=== PATIENT | male | born 1980 ===

== ENCOUNTER 2024-03-18 11:45 | Emergency (ER) | payer BC ==
[2024-03-18 13:14] LABS: CORONAVIRUS COVID-19 NAA NEGATIVE (NEGATIVE); INFLUENZA A NAA NEGATIVE (NEGATIVE); INFLUENZA B NAA NEGATIVE (NEGATIVE); RESPIRATORY SYNCYTIAL VIR NAA NEGATIVE (NEGATIVE)
== END 2024-03-18 13:50 | disposition home or self-care (01) ==
LOC: LL.ED 11:45
DX: R55 Syncope and collapse (principal)
CPT/HCPCS: 0241U; 99284